=== PATIENT | male | born 1980 | race Caucasian/White ===

== ENCOUNTER 2022-04-21 13:47 | Emergency (ER) | payer BC, OTHER | END 2022-04-21 14:32 | disposition left against medical advice (07) | LOC: JD.ED 13:47 | DX: Z53.21 Procedure and treatment not carried out due to patient leaving prior to being seen by health care provider (principal) ==

== ENCOUNTER 2024-07-13 06:29 | Emergency (ER) | payer BC ==
[2024-07-13] MEDS: Ibuprofen 800 MG Tab PO ONE (07:14)
[2024-07-13] MEDS: predniSONE 20 MG Tab PO ONE (07:14)
[2024-07-13] MEDS: Acetaminophen 325 MG Tab PO ONE (07:15)
[2024-07-13] MEDS: Albuterol/Ipratropium 3.0-0.5 MG/3 ML Neb Soln NEB ONE (07:19)
[2024-07-14] MEDS ORDERED: predniSONE 10 MG Tab PO SCH (07:00)
== END 2024-07-13 09:20 | disposition home or self-care (01) ==
LOC: JD.ED 06:29
DX: J20.8 Acute bronchitis due to other specified organisms (principal); Z79.899 Other long term (current) drug therapy; Z88.1 Allergy status to other antibiotic agents; Z88.8 Allergy status to other drugs, medicaments and biological substances
CPT/HCPCS: 71045; 94640; 99283; A9270; J7512; J7620